=== PATIENT | male | born 1975 | race American Indian/Alaskan Native ===

== ENCOUNTER 2021-01-19 17:43 | Inpatient (IN) | payer BC, OTHER ==
[~2021-01-19] VITALS: Ht 175.3 cm; Wt 114.5 kg
[~2021-01-19 17:43] MED LIST: LISINOPRIL10 MG PO; METFORMIN HCL500 MG PO
--- NOTE | 2021-01-19 23:35 | NUR ---
PT ARRIVES TO THE FLOOR VIA STRETCHER. 4PA TO TRANSFER PT TO HOSPITAL BED. PT IS ALERT AND ORIENTED; PT REPORTS LEFT SIDED PAIN TO HIP AND RIBS. VSS. PT ON 2L O2 NC, REPORTS THAT HE WEARS A CPAP AT HOME. CPOX ON, TELE MONITOR ON, IVF PER ORDERS. PT EDUCATED SPECIAL DELIVERY MESSENGER LIGHT, ADJUSTMENT FOR BED. PT OFFERED WATER AND HE DRANK 2 FULL CUPS QUICKLY. PT'S IN ROOM.
--- NOTE | 2021-01-19 23:40 | NUR ---
pt ARRIVES TO [facility] FLOOR VIA STRETCHER, PAINFUL, UNABLE TO SHIFT IN BED DUE TO PAIN. 4PA TO TRANSFER TO HOSPITAL BED, REPOSITION PATIENT. SCRATCHES ON LEFT SHOULDER, NO ADDITIONAL VISIBLE SKIN BREAKDOWN. 2L OXYGEN BY NC IN PLACE. pt STATES WEARS CPAP AT HOME, CPOX PLACED ON pt. pt REFUSING HOSPITAL CPAP AT THIS TIME. IN ROOM. PRIMARY RN ALSO IN ROOM TO ADMINISTERED PRN PAIN MEDICATIONS, ASSESS PATIENT. ORIENTATION TO CALL LIGHT AND ROOM PROVIDED.
--- NOTE | 2021-01-20 00:17 | NUR ---
PRN TORADOL AND PERCOCET ADMINISTERED AT THIS TIME FOR LEFT SIDED PAIN 03/15. TELE MONITOR ON, CPOX ON, PT CONTINUES TO BE ON 2L O2 PER NC.
--- NOTE | 2021-01-20 01:05 | NUR ---
RADIOLOGY IN ROOM FOR CHEST XRAY. 2PA TO BOOST PT IN BED FOR XRAY. LUNG SOUNDS IN LLL COARSE, OTHERWISE CLEAR IN ALL OTHER LOBES. SPO2 99% ON 2L NC. CALL LIGHT WITHIN REACH.
--- NOTE | 2021-01-20 02:30 | NUR ---
IN ROOM FOR 0200 VITALS. PT IS SLEEPING; SLIGHT SNORE NOTED. VSS. SPO2 97% ON 2L NC. NO APPARENT SIGNS OF DISTRESS. CALL LIGHT WITHIN REACH.
--- NOTE | 2021-01-20 03:23 | NUR ---
CHECKED ON PT; PT HAD TAKE NC OUT OF NOSE. SPO2 92% ON RA. REPLACED NC AND 2L; WATER PROVIDED FOR PT. PT DENIES NEEDS FOR PRN MEDS AT THIS TIME. CALL LIGHT WITHIN REACH.
--- NOTE | 2021-01-20 05:39 | NUR ---
IN ROOM FOR MORNING ASSESSMENT AND MEDS. PT REPORTS PAIN IN LEFT SIDE 01/13. SCHEDULED TYLENOL GIVEN AT THIS TIME. PT DENIES NEED TO VOID AND THUS FAR HAS NOT URINATED SINCE ARRIVING TO THE FLOOR. SPO2 98-99% ON 2L NC. TELE SHOWS SINUS RHYTHYM. PT DENIES ANY TINGLING OR NUMBNESS IN EXTREMITIES. PT DENIES FURTHER NEEDS AT THIS TIME. CALL LIGHT WITHIN REACH.
--- NOTE | 2021-01-20 08:10 | NUR ---
PT ASLEEP IN ROOM. WHITE BOARD UPDATED. CALL LIGHT WITHIN REACH. NO FURTHER NEEDS AT THIS TIME.
--- NOTE | 2021-01-20 10:37 | NUR ---
PT WAS LAYING IN BED. MORNING ASSESSMENT COMPLETED. PT LUNG SOUNDS ARE CLEAR. ACTIVE BOWEL TONES. PT STATED NO NUMBNESS OR TINGLING IN THE PT EXTREMITIES. PT STATED 4/10 PAIN BUT THIS WAS A TOLERABLE LEVEL. PT WAS EDUCATED ON WHEN TO REQUEST PAIN MEDICATION. MORNING MEDICATIONS GIVEN. SEE EMAR. PT WAS DROWSY THIS MORNING. PT IS ON 2L NASAL CANNULA. PT HAS LR RUNNING AT 85ML/HR. PT HAD NO FURTHER NEEDS AT THIS TIME.
--- NOTE | 2021-01-20 11:58 | NUR ---
CHECKED IN WITH PT. PT STATED PAIN IN HIS LEFT SHOULDER. 5/10 PAIN. KETOROLAC AND PERCOCET WAS GIVEN. WILL REASSESS PT AGAIN IN 30 MINUTES. IV FLUSHED WITH 10ML OF NS. NO FURTHER NEEDS AT THIS TIME.
--- NOTE | 2021-01-20 14:15 | NUR ---
PT ALERT, ORIENTED AND SISTER IN VISITING AT BS. VISIBLE ABBRASIONS ON LEFT SHOULDER. GAVE ENCOURAGEMENT, IV ALARM GOING OF. RN SHAUNA IN TO START NEW BAG OF FLUID. GAVE BLESSING AND G.POST. WILL FOLLOW NEEDED
--- NOTE | 2021-01-20 14:45 | NUR ---
RETURNED CALL FROM STANISLAV, DISCUSSED PT MOBILITY, NO LIMITATIONS IN REGARDS TO L2-L3 FX, UP WITH ASSISTANCE TO ENSURE NO DIZZINESS. CONFIRMED THAT SLING FOR LEFT ARM IS RECOMMENDED.
--- NOTE | 2021-01-20 14:46 | NUR ---
FRESH WATER GIVEN. PT RESTING IN BED. CALL LIGHT WITHIN REACH. NO FURTHER NEEDS AT THIS TIME.
--- NOTE | 2021-01-20 15:03 | NUR ---
AFTERNOON ASSESSMENT COMPLETED. PT LAYING IN BED. LUNG SOUNDS WERE CLEAR. BOWEL TONES WERE ACTIVE. PT STATED 4/10 PAIN WHICH WAS TOLERABLE. NO MAJOR CHANGES FROM THIS MORNING. WAITING TO HEAR BACK FROM DR JEROME IF PT NEEDS A SLING FOR LEFT CLAVICAL. PT IS ON 2L NASAL CANNULA. PT BLOOD SUGAR WAS CHECKED AND WAS 284. 7 UNITS OF HUMALOG WAS GIVEN. PT PLANS ON TAKING A SHOWER LATER TODAY. PT HAD NO FURTHER NEEDS AT THIS TIME.
--- NOTE | 2021-01-20 17:23 | NUR ---
PT WAS GIVEN PAIN MEDICATION. HE WAS EXPERIENCING 4/10 PAIN IN HIS LEFT SHOULDER. PT GLUCOSE WAS 295 SO HE WAS GIVEN 7 UNITS OF INSULIN. PT DINNER CAME. PT WATER FILLED. NO FURTHER NEEDS AT THIS TIME.
--- NOTE | 2021-01-20 18:05 | NUR ---
PT RESTING IN BED. IN ROOM. CALL LIGHT WITHIN REACH. BATHROOM SET UP FOR SHOWER. PT PLANS TO SHOWER LATER. NO FURTHER NEEDS AT THIS TIME.
--- NOTE | 2021-01-20 18:09 | NUR ---
PT OVERALL HAD AN OKAY DAY. HIS LUNG SOUNDS WERE CLEAR, ACTIVE BOWEL TONES, NO NUMBNESS OR TINGLING IN HIS EXTREMITIES. PT STATED 4-5/10 PAIN THROUGHOUT THE DAY IN HIS LEFT SHOULDER WHERE HE FRACTURED HIS CLAVICAL. PT RECEIVED PERC. TWICE TODAY FOR THE PAIN. PT IS ON 2L NC. LR RUNNING AT 85ML/HR. PT IV FLUSHES WELL WITH GOOD BLOOD RETURN. PT HAS A SLING ON HIS LEFT ARM. NO ACTIVITY RESTRICTIONS. PT IS DIABETIC AND GETTING BLOOD SUGAR CHECKS WITH THE SLIDING SCALE. SCD'S ARE IN PLACE.
--- NOTE | 2021-01-20 19:30 | NUR ---
SHIFT REPORT FROM NURSE BORGES AND STUDENT NURSE. PT IS SITTING UP IN BED; ALERT AND ORIENTED. PT REQUESTS MORE WATER AND STATES THAT HE WOULD LIKE TO SHOWER THIS EVENING. CALL LIGHT WITHIN REACH. NO FURTHER NEEDS AT THIS TIME.
--- NOTE | 2021-01-20 20:15 | NUR ---
IN ROOM FOR EVENING MEDS AND ASSESSMENT. PT IS IN BED, SITTING UP. CBG 257 REQUIRING 5UNITS SS INSULIN. LUNG SOUNDS ARE CLEAR, DIM. TELE D/C'D AT THIS TIME PER EARLIER ORDERS. ASSISTED PT TO BED SIDE FOR FIRST TIME SINCE ARRIVING. PT IS ABLE TO SIT UP ALTHOUGH WITH DISCOMFORT. IV IS SL AT THIS TIME IN PREPARATION FOR A SHOWER. PT ATTEMPTED TO AMBULATE BUT PAIN IN L HIP MADE PT FEEL "UNSURE" OF HIMSELF. WC TO SHOWER BENCH AND PIVOT TRANSFER INDEPENDENTLY TO BENCH. PT WAS ABLE TO SHOWER INDEPENDENTLY AND THEN AMBULATED TO RECLINER TO SIT UP AND WATCH TV. CALL LIGHT WITHIN REACH.
--- NOTE | 2021-01-20 21:16 | NUR ---
PT. ASSISTED FROM SEATED SHOWER AND HELPED WITH TOWELING OFF AND CHANGING GOWN. SLING PLACED ON RT. ARM. PT. AMBULATED WITH SBA TO CHAIR SLOWLY WITH MODERATE PAIN. LEFT RESTING IN CHAIR WITH CALL LIGHT IN REACH.
--- NOTE | 2021-01-20 21:30 | NUR ---
CHECKED ON PT. PT CONTINUES TO BE UP IN CHAIR WATCHING TV. PT DENIES NEEDS AT THIS TIME.
--- NOTE | 2021-01-20 22:15 | NUR ---
PT ASSISTED BACK TO BED; SCHEDULED TYLENOL ADMINISTERED AT THIS TIME. 2L O2 PER NC, CPOX ON. CALL LIGHT WITHIN REACH.
--- NOTE | 2021-01-20 23:42 | NUR ---
PT HAD REQUESTED THAT SOON PERCOCET WAS AVAILABLE PER SCHEDULE, TO BRING IT. PERCOCET X2 ADMINISTERED AT THIS TIME FOR 6/10 PAIN IN L SIDE/L HIP. SPO2 95% ON 2L NC. CALL LIGHT WITHIN REACH.
--- NOTE | 2021-01-21 02:00 | NUR ---
ROUNDS: PT SLEEPING WITH EYES CLOSED, EVEN BREATHING NOTED. CPOX SPO2 READS 96% ON 2L NC. NO SIGNS OF DISTRESS. CALL LIGHT WITHIN REACH.
--- NOTE | 2021-01-21 03:48 | NUR ---
ROUNDS: PT HAS REPOSITIONED HIMSELF; IS SLEEPING. SPO2 ON CPOX 96% WITH 2L NC. CALL LIGHT WITHIN REACH.
--- NOTE | 2021-01-21 05:25 | NUR ---
IN ROOM FOR MORNING MEDS AND ASSESSMENT. PT WAS ASLEEP BUT AWAKES EASILY TO TOUCH. PT REPORTS MINIMAL PAIN AT THIS TIME; SCHEDULED TYLENOL GIVEN. VSS. LUNG SOUNDS CLEAR BUT DIM. SPO2 PER CPOX 95-97% ON 2L NC. BOWEL TONES ACTIVE, CMS INTACT. PT DENIES FURTHER NEEDS AT THIS TIME. CALL LIGHT ON BEDSIDE TABLE WITHIN REACH.
--- NOTE | 2021-01-21 08:06 | NUR ---
this rn recieved report from rachid chin. pt appears to be resting comfortably at this time with respirations noted
--- NOTE | 2021-01-21 08:58 | NUR ---
PATIENT AWAKE BREAKFAST EATEN AT 100%. PATIENT REFUSED GETTING UP IN CHAIR AT THE MOMENT. VIATLS AND I&O'S TAKEN AND DOCUMENTED. CALL LIGHT IN REACH NOTHING ELSE NEEDED AT THIS TIME.
--- NOTE | 2021-01-21 10:03 | NUR ---
this rn in pts room with [facility] clinical nursing coordinator to give pt his morning meds. pt has a flat affect but answers questions appropirately. pt reports pain is 5/10 after getting pain meds at 0815 this am.
--- NOTE | 2021-01-21 10:27 | NUR ---
PATIENT UP IN CHAIR AND AM CARE DONE. VITALS I&O'S CHARTED. LINEN CHANGE PATIENT OFFERED SHOWER OR WASHED UP BUT REFUSED SAID MAYBE LATER. CALL LIGHT IN REACH AND NOTHING ELSE NEEDED
--- NOTE | 2021-01-21 11:08 | NUR ---
PT ALERT, ORIENTED AND HAS RATHER FLAT AFFECT BUT RESPONDED TO ALL QUESTIONS. PT TODAY HAS SLING ON L ARM, GAVE ENCOURAGEMENT AND BLESSING. WILL FOLLOW NEEDED
--- NOTE | 2021-01-21 11:33 | NUR ---
MED REC COMPLETE
--- NOTE | 2021-01-21 12:15 | NUR ---
THIS RN IN PTS ROOM TO GIVE PT HIS INSULIN AT THIS TIME. PT STATES THAT HIS PAIN IS 6/10 BUT HE IS TOLERATING OKAY.
--- NOTE | 2021-01-21 14:30 | NUR ---
THIS RN IN PTS ROOM TO GIVE PT HIS SCHEDULED TYLENOL. PT STATES THAT HIS PAIN INCREASED TO 7/10. THIS RN STATED THAT PT IS READY FOR PAIN MEDS, PT STATES READY FOR A PERCOCET
--- NOTE | 2021-01-21 16:00 | NUR ---
CALLED TO SAY THAT HE WILL BE BY LATER TO SEE PT
--- NOTE | 2021-01-21 17:10 | NUR ---
THIS RN IN PTS ROOM TO GIVE PT INSULIN. PT SITTING UP TO CHAIR AND STATES THAT HIS PAIN INCREASED TO 8/10 DUE TO HIM SUDDENLY CHANING POSIITIONS IN CHAIR. THIS RN TO PROVIDE PT WITH ANOTHER PERCOCET TO GET HIM TO HIS TOTAL 2 TABS EVERY 6 HOURS. PT HAS NO OTHER CONCERNS. PTS AT BEDSIDE AT THIS TIME AND THIS RN ABLE TO ANSWER QUESTIONS FROM ABOUT WHY SURGERY ON CLAVICLE IS BEING PUSHED OUT, PTS STATED UNDERSTANDING AT THIS TIME
--- NOTE | 2021-01-21 19:30 | NUR ---
BEDSIDE REPORT RECEIVED FROM JOIE BLANKENSHIP. AT BEDSIDE. pt SLEEPING, EYES CLOSED, BREATHING EQUAL AND UNLABORED, 2L OXYGEN BY NC IN PLACE FOR SLEEP, SPO2 96%, HR 78. CPOX IN PLACE.
--- NOTE | 2021-01-21 21:45 | NUR ---
pt ASSESSMENT COMPLETE. pt DENIES PAIN AT REST. DENIES NEED FOR PRN MEDICATION AT THIS TIME. PAINFUL WITH REPOSITIONING. BOOSTED HIGHER IN BED WITH ADVERTISING CONSULTANT NICCI ASSIST. LEFT ARM IN SLING. CSM INTACT BUE, BLE. CPOX IN PLACE, SPO2 WNL WITH 2L OXYGEN FOR SLEEP. VSS. LUNG SOUNDS CLEAR THROUGHOUT ALL LOBES. CALL LIGHT IN REACH. DIET PEPSI PROVIDED REQUESTED.
--- NOTE | 2021-01-21 22:57 | NUR ---
pt BACK IN BED FROM RESTROOM AFTER VOID. GAIT STEADY, GUARDED WITH MOVEMENT. LEFT ARM IN SLING. PRN PAIN MEDICATION ADMINISTERED FOR 7/10 PAIN IN RIBS, LEFT HIP, LEFT SHOULDER. DENIES NEED FOR SNACK WITH PO MEDICATIONS. CALL LIGHT WITHIN REACH.
--- NOTE | 2021-01-22 00:55 | NUR ---
PATIENT RESTING IN BED WITH EYES CLOSED. BREATHING EQUAL AND UNLABORED. SPO2 98% WITH 2L OXYGEN BY NC IN PLACE. CPOX ON.
--- NOTE | 2021-01-22 02:29 | NUR ---
CHECKED ON pt. RESTING IN BED WITH EYES CLOSED. 2L OXYGEN BY NC IN PLACE, SPO2 97% WITH CPOX, HR 59.
--- NOTE | 2021-01-22 03:20 | NUR ---
IV PUMP ALARMING, TUBING STRAIGHTENED AND IVF INFUSING WNL. pt SLEEPING, EYES CLOSED, RR 18. 2L OXYGEN BY NC IN PLACE, SPO2 WNL.
--- NOTE | 2021-01-22 04:26 | NUR ---
CHECKED ON pt. RESTING IN BED WITH EYES CLOSED. BREATHING EQUAL AND UNLABORED. SPO2 WNL ON CPOX, 2L OXYGEN BY NC IN PLACE.
--- NOTE | 2021-01-22 06:29 | NUR ---
pt SLEEPING, AWAKENS TO VOICE. VSS. pt DENIES PAIN AT REST. SCHEDULED TYLENOL AND PRN MOTRIN ADMINISTERED FOR PAIN CONTROL. IVF INFUSING WNL. SBA TO RESTROOM FOR VOID AND BACK TO BED. pt GRIMACING, NEARLY TEARFUL WITH GETTING BACK INTO BED, RATES PAIN 10/10 IN LEFT SHOULDER DOWN BACK. PRN PERCOCET ADMINISTERED REQUESTED. ASSESSMENT COMPLETE. LUNG SOUNDS CLEAR THROUGHOUT ALL LOBES, DIM LLL. CALL LIGHT IN REACH.
--- NOTE | 2021-01-22 07:07 | NUR ---
this rn recieved report from jorge chin. pt appears to be resting at this time with respirations noted and cpox in place.
--- NOTE | 2021-01-22 08:15 | NUR ---
this rn in pts room to give pt his morning meds. pt sitting in bed and sating 90-93% on room air. pt more alert this am and states that he is doing good. pt has no concerns going home. this rn briefly discussed with pt about sleeping in a recliner at home to assist with pain
--- NOTE | 2021-01-22 08:20 | NUR ---
WENT INTO GET PATIENT UP FOR BREAKFAST PATIENT DIDNT WANT TO ORDER BREAKFAST OR GET UP AT THE MOMENT. WILL REAPPROACH AT ANOTHER TIME.
[2021-01-22] MEDS ORDERED: ACETAMINOPHEN500 MG PO (08:23)
[2021-01-22] MEDS ORDERED: IBUPROFEN600 MG PO (08:23)
[2021-01-22] MEDS ORDERED: OXYCODON-ACETA1 EAC2 PO (08:23)
--- NOTE | 2021-01-22 09:35 | NUR ---
PATIENT IN BED. INFORMED PATIENT OF WARM BATH WIPES TO CLEAN UP PATIENT STATED OK. ALSO INFORMED PATIENT OF WHAT HIS RN SUGGESTED HOW TO GET UP SO ITS NOT PAINFUL. PATIENT STATED "OK". WILL REAPPROACH AT ANOTHER TIME. VITALS AND I&O'S CHARTED. CALL LIGHT IN REACH. NOTHING ELSE NEEDED
--- NOTE | 2021-01-22 09:50 | NUR ---
THIS RN INTO PATIENT ROOM. PATIENT STATES HE IS BEING DISCHARGED TODAY AND WILL BE FOLLOWING UP WITH DR. JEROME NEXT WEEK. PATIENT DENIES ANY NEEDS FOR DME, FINANCIAL ASSISTANCE OR NEED FOR PLACEMENT AT THIS TIME. ADVISED PATIENT IF HE HAS ANY QUESTION REGARDING HIS STAY OR DISCHARGE TO NOTIFY CASE MANAGEMENT STAFF, PATIENT AGREES TO DO SO.
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
== END 2021-01-22 11:10 | disposition home or self-care (01) | DRG 184 ==
LOC: ED 17:43 → MS 23:08
PROVIDERS: ADMIT Surgery; ATTEND Surgery
DX: S22.42XA Multiple fractures of ribs, left side, initial encounter for closed fracture (principal); S32.029A Unspecified fracture of second lumbar vertebra, initial encounter for closed fracture; S32.039A Unspecified fracture of third lumbar vertebra, initial encounter for closed fracture; Z20.822 Contact with and (suspected) exposure to COVID-19; E11.9 Type 2 diabetes mellitus without complications; E66.9 Obesity, unspecified; S42.002A Fracture of unspecified part of left clavicle, initial encounter for closed fracture; V86.59XA Driver of other special all-terrain or other off-road motor vehicle injured in nontraffic accident, initial encounter; Z68.37 Body mass index [BMI] 37.0-37.9, adult; Z79.899 Other long term (current) drug therapy
CPT/HCPCS: 36415; 70450; 71045; 71260; 72125; 73000; 73552; 74177; 80053; 81001; 82150; 82550; 83036; 83690; 85025; 86850; 86900; 86901; 94762; 96375; 96376; 99285-25; A9270; C9803; J1170; J1644; J1815; J1885; J2405; J7121; Q9967; U0003

== ENCOUNTER 2021-02-07 07:30 | Day surgery (SDC) | payer BC, OTHER ==
[~2021-02-07] VITALS: Ht 175.3 cm; Wt 121.4 kg
[~2021-02-07 07:30] MED LIST changes: +ACETAMINOPHEN500 MG PO; +IBUPROFEN600 MG PO; +OXYCODON-ACETA1 EAC2 PO
[2021-02-07] MEDS ORDERED: HYDROCODON-ACE1 EA11 PO (10:12)
--- NOTE | 2021-02-07 10:21 | NUR ---
02/07/21 1021 Sheets,Ivanna 1010 PT ARRIVED TO PACU RESP EVEN AND UNLABORED. SMALL AMOUNT OF OBSTRUCTION/SNORING NOTED. PT CLEARS WITH PAINFUL STIMULI AND ENCOURAGMENT TO DEEP BREATHE. VSS. 1020 PT WAKES AND REACHING FOR FACE, O2 MASK REMOVED AND PT REORIENTED TO PACU, PT DENIES PAIN AND NAUSEA.
--- NOTE | 2021-02-07 12:27 | NUR ---
RATES PAIN 3/10 AND REQUESTS PAIN PILL AND GIVEN.
--- NOTE | 2021-02-07 13:00 | NUR ---
PATIENT SITTING UP ON EDGE OF BED DRESSED WITH IV OUT. PATIENT READY TO GO HOME, HOWEVER RED IS NOT HERE. CONTACTED MULTIPLE TIMES. PATIET DRESSING TO SHOULDER C/D/I. CRYO AND SLING IN PLACE. NO OTHER NEEDS AT THIS TIME.
--- NOTE | 2021-02-07 14:07 | NUR ---
2746 ARRIVES TO TAKE PT HOME. INSTRUCTIONS ON CRYOCUFF EXPLAINED TO PT AND . DC INSTRUCTIONS EXPLAINED STATE THEY UNDERSTAND AND NO QUESTIONS.
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
== END 2021-02-07 13:55 | disposition home or self-care (01) ==
LOC: DS 07:30
PROVIDERS: ATTEND Specialist
PROC: 0PSB04Z Reposition Left Clavicle with Internal Fixation Device, Open Approach (ICD-10-PCS; principal; 2021-02-07 09:30)
DX: S42.002A Fracture of unspecified part of left clavicle, initial encounter for closed fracture (principal); S22.49XA Multiple fractures of ribs, unspecified side, initial encounter for closed fracture; G89.18 Other acute postprocedural pain; E66.01 Morbid (severe) obesity due to excess calories; G47.30 Sleep apnea, unspecified; E11.9 Type 2 diabetes mellitus without complications; I10 Essential (primary) hypertension; V86.99XA Unspecified occupant of other special all-terrain or other off-road motor vehicle injured in nontraffic accident, initial encounter; Z68.39 Body mass index [BMI] 39.0-39.9, adult; Z79.84 Long term (current) use of oral hypoglycemic drugs
CPT/HCPCS: 01630; 64415; 73000; 76942; A9270; C1713; J0690; J1100; J1885; J2001; J2250; J2405; J2704; J2795; J3010; J7121